=== PATIENT | female | born 1940 | race Caucasian/White ===

== ENCOUNTER 2019-07-11 11:35 | Day surgery (SDC) | payer BC ==
[2019-07-11] VITALS (11 sets, daily range): BP systolic 93–137; BP diastolic 54–75
[~2019-07-11] VITALS: Ht 162.6 cm; Wt 83.7 kg
[~2019-07-11 11:35] MED LIST: ASPI-611 PO; ATOR20TA66 PO; CALC-793 PO; LACT1CAP65 PO; LISI40TA4 PO; MAGN400T28 PO; METF-900 PO; PANT-47 PO; PRED5DRO7 OP; SPIIN INH; TOLT4CAP PO
[2019-07-11] MEDS ORDERED: dextrose ORAL solution 15 GM/59 ML bottle PO PRN ×2 (12:00)
[2019-07-11] MEDS ORDERED: insulin Lispro (HumaLOG) vial - multi-dose SQ SCH (12:00)
[2019-07-11] MEDS ORDERED: diphenhydrAMINE 25mg capsule PO PRN (12:00)
[2019-07-11] MEDS ORDERED: MESSAGE TO PHARMACY PO ONE (12:00)
[2019-07-11] MEDS ORDERED: normal saline 1,000 ML IV SCH (12:00)
[2019-07-11] MEDS ORDERED: glucagon, human recombinant 1mg kit SUBCUT PRN (12:00)
[2019-07-11] MEDS ORDERED: LORazepam 0.5 MG tablet PO PRN (12:00)
[2019-07-11] MEDS ORDERED: nitroGLYCERIN 0.4mg SUBLingual tab SL PRN (12:00)
[2019-07-11] MEDS ORDERED: dextrose 50%-water 50ml dispensing syringe IV PRN ×2 (12:00)
[2019-07-11 12:10] LABS: BASOPHILS # (AUTO) 0.1 X10'3 (0-0.2); BASOPHILS % (AUTO) 0.7 % (0-1); EOSINOPHILS # (AUTO) 0.3 X10'3 (0-0.9); EOSINOPHILS % (AUTO) 3.7 % (0-6); HEMATOCRIT 41.3 % (35.0-45.0); HEMOGLOBIN 13.8 g/dl (12.0-16.0); LYMPHOCYTES # (AUTO) 2.4 X10'3 (1.1-4.8); LYMPHOCYTES % (AUTO) 28.4 % (21-51); MEAN CORPUSCULAR HEMOGLOBIN 31.1 PG (27.0-31.0); MEAN CORPUSCULAR HGB CONC 33.4 g/dL (33.0-36.5); MEAN CORPUSCULAR VOLUME 93.1 FL (78-98); MONOCYTES # (AUTO) 0.8 X10'3 (0-0.9); MONOCYTES % (AUTO) 9.9 % (2-12); NEUTROPHILS # (AUTO) 4.7 X10'3 (1.8-7.7); NEUTROPHILS % (AUTO) 57.3 % (42-75); PLATELET COUNT 249 X10'3 (140-440); RED BLOOD COUNT 4.43 X10'6 (4.20-5.60); RED CELL DISTRIBUTION WIDTH 14.7 % (11.5-14.5); WHITE BLOOD COUNT 8.3 X10'3 (4.5-11.0)
[2019-07-11 12:17] LABS: ALBUMIN 3.9 G/DL (3.4-5.0); ANION GAP 10 (8-16); BLOOD UREA NITROGEN 18 MG/DL (7-18); BUN/CREATININE RATIO 14.9 (6.6-38.0); CALCIUM 9.6 MG/DL (8.5-10.1); CHLORIDE 103 MMOL/L (99-107); CREATININE 1.21 MG/DL (0.40-0.90); GLUCOSE 129 MG/DL (70-104); POTASSIUM 4.5 MMOL/L (3.5-5.1); SODIUM 139 MMOL/L (135-145); TOTAL CARBON DIOXIDE 26.5 MMOL/L (24-32); eGFR 43 ML/MIN
[2019-07-11 12:22] LABS: PARTIAL THROMBOPLASTIN TIME 27 SECONDS (22-32)
[2019-07-11] MEDS ORDERED: midazolam 2 mg/2 ml injection ONE (12:29)
[2019-07-11] MEDS ORDERED: iohexol 350MG/ML 100ml bottle IV ONE (12:30)
[2019-07-11] MEDS ORDERED: LIDOcaine 1% (10mg/ml)w/preservative injection 20ml MDV ONE (12:30)
[2019-07-11] MEDS ORDERED: fentaNYL/PF 50MCG/1 ML 2ML syringe ONE (12:30)
[2019-07-11] MEDS ORDERED: iohexol 350 MG/ML 50ML vial IV ONE (12:30)
[2019-07-11] MEDS ORDERED: LISI-644 PO (12:31)
[2019-07-11] MEDS ORDERED: MAGN500C16 PO (12:31)
[2019-07-11] MEDS ORDERED: MECO10005 (12:32)
[2019-07-11] MEDS ORDERED: OMEP40CA13 PO (12:38)
[2019-07-11] MEDS ORDERED: GLUC100017 (12:38)
[2019-07-11] MEDS ORDERED: MELO-102 PO (12:38)
[2019-07-11] MEDS ORDERED: BENZ-16 PO (12:38)
[2019-07-11] MEDS ORDERED: BIOT10004 PO (12:38)
[2019-07-11] MEDS ORDERED: CHOL500049 PO (12:38)
[2019-07-11 13:46] LABS: HEMOGLOBIN A1C 6.8 % (4.5-6.2)
[2019-07-11] MEDS ORDERED: proCHLORperazine 10 MG/2 ml inj IV PRN (14:10)
[2019-07-11] MEDS ORDERED: HYDROcodone/acetaminophen 10/325mg tab PO PRN (14:10)
[2019-07-11] MEDS ORDERED: HYDROcodone/acetaminophen 5mg/325mg tablet PO PRN (14:10)
[2019-07-11] MEDS ORDERED: ondansetron/PF 4mg/2ml inj IV PRN (14:10)
[2019-07-11] MEDS ORDERED: OXAZEpam 15mg capsule PO PRN (14:10)
[2019-07-11] MEDS ORDERED: insulin glargine (Lantus) pen - multi-dose SQ SCH (21:00)
== END 2019-07-11 19:30 | disposition home or self-care (01) ==
LOC: SSTAY O 11:35
PROVIDERS: ATTEND Internal Medicine Cardiovascular Disease
DX: R94.39 Abnormal result of other cardiovascular function study (principal); I25.10 Atherosclerotic heart disease of native coronary artery without angina pectoris; I10 Essential (primary) hypertension; E11.9 Type 2 diabetes mellitus without complications; K21.9 Gastro-esophageal reflux disease without esophagitis; J44.9 Chronic obstructive pulmonary disease, unspecified; G89.4 Chronic pain syndrome; Z88.2 Allergy status to sulfonamides; Z88.8 Allergy status to other drugs, medicaments and biological substances; Z87.891 Personal history of nicotine dependence; Z79.01 Long term (current) use of anticoagulants; Z79.899 Other long term (current) drug therapy
CPT/HCPCS: 36415; 71046; 80048; 82948; 83036; 85025; 85610; 85730; 93458; 99152; C1769; J1644; J1815; J2001; J2250; J3010; J7030; Q0163; Q9967; 99153; A4620; A6258; C1760